=== PATIENT | female | born 1990 | race Caucasian/White ===

== ENCOUNTER 2017-01-31 11:06 | Emergency (ER) | payer BC, OTHER ==
[~2017-01-31] VITALS: Ht 152.4 cm; Wt 88.5 kg
[2017-01-31 11:19] VITALS: BP 141/102
--- NOTE | 2017-01-31 11:23 | NUR ---
Patient ambulated to bed 03.
--- NOTE | 2017-01-31 11:29 | NUR ---
PT PRESENTS TO ER W/C/O LOW BACK PAIN X 2DAYS. PT DENIES ANY FALL OR TRAUMA.pain scale of 10/10 THAT RADIATES TO LEFT THIGH.PT STATES PAIN IS WORSE AFTER BOWEL MOVEMENT.DENIES ANY MEDICAL HX;DENIES CP/SOB/FEVER/N/V/D/.PT OIS AAOX4.NO ACUTE DISTRESS NOTED AT THIS TIME.HOB ELEVATED;SAFETY PRECAUTION INSTITUTED;NEEDS ATTENDED. MADE AWARE OF PT'S CONDITION.
--- NOTE | 2017-01-31 11:53 | NUR ---
PT IS LYING ON BED QUIETLY;MOTHER AT BEDSIDE;WILL CONTINUE TO MONITOR PT.
--- NOTE | 2017-01-31 12:10 | NUR ---
DR POWER AT BEDSIDE
--- NOTE | 2017-01-31 12:31 | NUR ---
PT LYING ON BED;NO ACUTE DISTRESS NOTED AT THIS TIME.
--- NOTE | 2017-01-31 12:53 | NUR ---
Dr. Blake evaluating patient at bedside.
[2017-01-31] MEDS ORDERED: KETOROLAC 60 MG/2 ML VIAL IM ONE (12:55)
[2017-01-31] MEDS ORDERED: HYDROcodone/APAP 5/325 MG 1 TAB TAB PO ONE (12:55)
--- NOTE | 2017-01-31 13:31 | NUR ---
PT LYING ON BED COMFORTABLY;VERBALIZES REDUCED PAIN LEVEL FROM 10/10 TO 4/10;NO ACUTE DISTRESS NOTED;WILL CONTINUE TO MONITOR PT.
--- NOTE | 2017-01-31 14:10 | NUR ---
DR POWER AT BEDSIDE
--- NOTE | 2017-01-31 14:22 | NUR ---
Patient discharged with v/s stable. Written and verbal after care instructions given and explained. Patient alert, oriented and verbalized understanding of instructions. Ambulatory with steady gait. All questions addressed prior to discharge. ID band removed. Patient advised to follow up with PMD. Rx of NAPROSYN AND NORCO given. Patient educated on indication of medication including possible reaction and side effects. Opportunity to ask questions provided and answered.
[2017-01-31 14:25] VITALS: BP 119/70
== END 2017-01-31 14:22 | disposition home or self-care (01) ==
LOC: MED 11:06
DX: M54.42 Lumbago with sciatica, left side (principal); R03.0 Elevated blood-pressure reading, without diagnosis of hypertension
CPT/HCPCS: 96372; 99283; J1885